=== PATIENT | female | born 1970 | race African-American/Black ===

== ENCOUNTER 2019-10-06 12:32 | Inpatient (IN) | payer OTHER ==
[~2019-10-06] VITALS: Ht 165.1 cm; Wt 104.3 kg
[2019-10-06 12:49] VITALS: BP_SYST 157
--- NOTE | 2019-10-06 12:50 | NUR ---
Patient to ER bed 1 to gown for evaluation. Side rails up. Report given to David BILL.
[2019-10-06] MEDS ORDERED: NACL 0.9% 1,000 ML IV ONE (13:00)
[2019-10-06] MEDS ORDERED: SPIR50TA5 PO (13:42)
[2019-10-06] MEDS ORDERED: FURO-149 PO (13:42)
[2019-10-06] MEDS ORDERED: PANT20TA3 PO (13:42)
--- NOTE | 2019-10-06 13:45 | NUR ---
PATIENT PRESENTS TO THE ER WITH HX OF ABNORMAL LABORATORY VALUES DRAWN ON 09/22/19; PATIENT WAS INSTRUCTED TO SEEK ER EVALUATION FOR LOW HB; NO TRAUMA, NO OTHER REMARKABLE S/S; PATIENT TO ER #1 AT 1230, ERMD EVALUATION AT 1245 Addendum: 10/06/19 at 1346 by [facility] CORRECTION; PATIENT TO ER #1 AT 1245 Addendum: 10/06/19 at 1347 by [facility] CORRECTION; ERMD EVALUATION AT 1300
[2019-10-06 14:07] LABS: HEMATOCRIT 23.3 % (36-48); MEAN CORPUSCULAR HEMOGLOBIN 21 pg (27-31); MEAN CORPUSCULAR HGB CONC 29 % (32-36); MEAN CORPUSCULAR VOLUME 73 fL (79.0-98.0); PLATELET COUNT (AUTO) 295 K/uL (130-430); RED BLOOD CELL COUNT(AUTO) 3.21 MIL/uL (4.2-6.2); RED CELL DISTRIBUTION WIDTH 19.3 % (9.0-15.0); WHITE BLOOD COUNT (AUTO) 3.1 K/uL (4.8-10.8)
[2019-10-06 14:08] LABS: CALCIUM 8.2 mg/dL (8.4-11.0); CREATININE 0.78 mg/dL (0.55-1.30); POTASSIUM 3.6 mmol/L (3.5-5.1)
[2019-10-06 14:14] LABS: ALBUMIN 2.9 g/dL (3.4-4.8); TOTAL BILIRUBIN 0.3 mg/dL (0.0-1.0)
[2019-10-06 14:18] LABS: HEMOGLOBIN 6.8 g/dL (12.0-16.0)
[2019-10-06 14:23] LABS: INR 1.1 (0.8-1.2); PROTHROMBIN TIME 10.6 SECS (9.5-12.5)
--- NOTE | 2019-10-06 14:27 | NUR ---
IV PLACED #22 TO LEFT WRIST WITHOUT INCIDENT
--- NOTE | 2019-10-06 14:28 | NUR ---
PATIENT IS ON CARDIAC [place] AND SAO2
[2019-10-06 15:08] LABS: ATYPICAL LYMPHOCYTES % 0 % (0-0); BAND % (MANUAL) 5 % (0-6); BASOPHILS % (MANUAL) 0 % (0-2); EOSINOPHILS % (MANUAL) 7 % (0-7); LYMPHOCYTES % (MANUAL) 30 % (20-46); MONOCYTES % (MANUAL) 8 % (0-11)
--- NOTE | 2019-10-06 15:21 | NUR ---
REASSESSMENT BY ERMMeliton; PREPARATIONS TO ADMIT TO [facility]; REPORT CALLED TO [facility] AND PATIENT TRANSPORTED BCLS UNCHANGED WITH PATENT IV
[2019-10-06 16:00] VITALS: BP_SYST 136
--- NOTE | 2019-10-06 16:01 | NUR ---
Admission: Received from ER on a gurney with the diagnosis of severe anemia. Patient is oriented x4. Oriented to room , call light within reach.
--- NOTE | 2019-10-06 16:20 | NUR ---
Notes- In bed, awake, alert and oriented. denies any chest pain or shortness of breath. Family at bedside. Oriented to environment and call light use. Enc. to call for help as needed.
--- NOTE | 2019-10-06 17:01 | NUR ---
Notes- Resting in bed, family at bedside. Denies any pain or discomfort. Blood not yet available at this time.
--- NOTE | 2019-10-06 17:38 | NUR ---
Blood bank called and stated that [facility] do not have AB+ CMV safe blood. Called Dr. Poole, also informed patient about the situation.
--- NOTE | 2019-10-06 17:44 | NUR ---
Spoke to Dr. Poole about the blood type. Per MD whatever blood bank recommends that is safe for the patient.
--- NOTE | 2019-10-06 18:00 | NUR ---
AMA TOOK DINNER TRAY TO PT'S ROOM. PT WAS LEAVING FROM HER ROOM WITH .ASKED PT.PT STATED I AM LEAVING HOSPITAL .PT IS UPSET BECAUSE BLOOD TRANSFUSION HAS NOT BEEN STARTED. EXPLAINED PT THAT BLOOD BANK IS IN PROCESS OF PREPARING BLOOD .PT'S STATED "DOCTOR ORDERED WRONG BLOOD" EDUCATED PT AND PT'S THAT BLOOD COMES FROM BLOOD BANK AND THEY HAVE PROCESS TO HAVE THE BLOOD READY. PT STILL WANTED TO LEAVE. PT DOES NOT WANT TO WAIT . PT REFUSED TO SIGN AMA.HOUSE SUPERVISIOR SABINO BLACKMON. Addendum: 10/06/19 at 1859 by Arlyn Forrest RN 1800 PT REFUSED TO SIGN AMA FORM.
--- NOTE | 2019-10-06 18:02 | NUR ---
Notes- Patient's and family upset that blood is not ready yet and stated that they been waiting for a long time. Informed patient that blood bank are in the process of preparing the blood at this time. Patient's left AMA but refused to signed the form. Doctor Virgilio made aware. charge histotechnologist and house sup aware. Addendum: 10/06/19 at 1820 by Zainab Werner RN IVMichelle removed
[2019-10-06 18:22] LABS: TOTAL IRON BIND. CAPACITY 402 ug/dL (250-450)
[2019-10-06] MEDS ORDERED: FERROUS SULFATE 325 MG TABLET.DR PO SCH (21:00)
[2019-10-07] MEDS ORDERED: FUROSEMIDE 40 MG TABLET PO SCH (09:00)
[2019-10-07] MEDS ORDERED: SPIRONOLACTONE 50 MG TABLET (ALDACTONE) PO SCH (09:00)
[2019-10-08 10:26] LABS: FOLATE (FOLIC ACID) 7.6 ng/mL (>3.0)
== END 2019-10-06 18:00 | disposition left against medical advice (07) | DRG 812 ==
LOC: SED 12:32 → SMU 15:11
PROVIDERS: ADMIT General Practice; ATTEND General Practice
DX: D64.9 Anemia, unspecified (principal); J45.909 Unspecified asthma, uncomplicated; Z53.29 Procedure and treatment not carried out because of patient's decision for other reasons; Z90.49 Acquired absence of other specified parts of digestive tract; Z79.899 Other long term (current) drug therapy; Z91.041 Radiographic dye allergy status
CPT/HCPCS: 36415; 71045; 80053; 82607; 82728; 82746; 83540-TC; 83550-TC; 85007; 85027; 85610-TC; 85730-TC; 86886; 86900; 86901; 86920; 93005; 96360; 99285; J7030